=== PATIENT | female | born 1950 | race African-American/Black ===

== ENCOUNTER → 2017-04-14 | Outpatient (CLI) | payer MEDICARE, MEDICAID ==
[~2017-04-14] MED LIST: AMLO10TA80 PO; KDUR10 PO; LIDOCAINE HCL/PF 1% 2ML VIAL ONE
[2017-04-14 07:38] LABS: BG BASE EXCESS -4.3 mmol/L (-2.0-2.0); BG CARBOXYHEMOGLOBIN 0.3 % (0.5-1.5); BG DEOXYHEMOGLOBIN 3.4 % (0.0-5.0); BG HCO3 ACT 20.4 mmol/L (22.0-26.0); BG METHEMOGLOBIN 0.2 % (0.0-1.5); BG OXYGEN SATURATION 96.6 % (92.0-98.5); BG OXYHEMOGLOBIN 96.1 % (94.0-97.0); BG PCO2 36.1 mmHg (35.0-45.0); BG PH 7.369 (7.350-7.450); BG SAMPLE SITE RIGHT RADIAL; BG TOTAL HEMOGLOBIN 13.1 g/dL (12.0-18.0); BG VENT MODE ROOM AIR
== END | disposition home or self-care (01) ==
LOC: RAD 07:10
PROVIDERS: ATTEND Internal Medicine Pulmonary Disease
DX: R06.02 Shortness of breath (principal)
CPT/HCPCS: 36600; 71010; 82375; 82805; J3490

== ENCOUNTER 2019-08-04 17:08 | Inpatient (IN) | payer OTHER ==
[~2019-08-04] VITALS: Ht 165.1 cm; Wt 146.7 kg
[~2019-08-04 17:08] MED LIST changes: -LIDOCAINE HCL/PF 1% 2ML VIAL ONE
[2019-08-04 18:41] LABS: HEMATOCRIT. 37.2 % (36.0-48.0); HEMOGLOBIN. 12.3 g/dL (12.0-16.0); MEAN CORPUSCULAR HEMOGLOBIN 25.5 pg (28.0-32.0); MEAN CORPUSCULAR VOLUME 77.1 fL (81.0-99.0); MEAN PLATELET VOLUME 8.2 fl (7.4-10.4); PLATELET 440 x1000/uL (130-400); RED BLOOD CELL COUNT 4.82 mill/uL (4.2-5.4); RED CELL DISTRIBUTION WIDTH 20.5 % (11.6-14.6)
[2019-08-04 18:47] LABS: CHLORIDE 104 mEq/L (98-107)
[2019-08-04 19:55] LABS: PLATELET ESTIMATE SLIGHTLY INCREASED
[2019-08-04] MEDS ORDERED: ASPIRIN 325MG EC TABLET PO ONE (20:15)
[2019-08-04] MEDS ORDERED: ENOXAPARIN 100MG/ML SYR SUBCUT NR (20:15)
[2019-08-04] MEDS ORDERED: ONDANSETRON HCL 4MG/2ML INJ IV STA (22:38)
[2019-08-04] MEDS ORDERED: MORPHINE SULFATE 4 MG/ML CPJ (NOT FOR IM USE) IV STA (22:38)
[2019-08-05] VITALS (9 sets, daily range): BP systolic 125–166; BP diastolic 64–87
[2019-08-05] MEDS ORDERED: METHYLPREDNISOLONE SOD SUCC 125 MG/2 ML VIAL IV NR (00:15)
[2019-08-05] MEDS ORDERED: ALBUTEROL (0.083%) 2.5MG/3ML NEB HHN PRN (00:15)
[2019-08-05] MEDS ORDERED: OMEPRAZOLE 20MG CAPSULE EXTENDED RELEASE PO NR (00:30)
[2019-08-05] MEDS ORDERED: DOCUSATE SODIUM 100MG CAPSULE PO PRN (00:45)
[2019-08-05] MEDS ORDERED: ACETAMINOPHEN 325MG TABLET PO PRN (00:45)
[2019-08-05 04:57] LABS: BASOPHILS % 0.2 % (0.0-2.0); HEMATOCRIT. 35.1 % (36.0-48.0); HEMOGLOBIN. 11.7 g/dL (12.0-16.0); LYMPHOCYTES % 9.6 % (20.0-50.0); MEAN CORPUSCULAR HEMOGLOBIN 25.5 pg (28.0-32.0); MEAN CORPUSCULAR VOLUME 76.4 fL (81.0-99.0); MEAN PLATELET VOLUME 8.3 fl (7.4-10.4); MONOCYTES % 4.4 % (2.0-8.0); NEUTROPHILS % 84.8 % (40.0-76.0); PLATELET 372 x1000/uL (130-400)
[2019-08-05 05:09] LABS: PHOSPHORUS 3.3 mg/dL (2.5-4.9)
[2019-08-05 05:14] LABS: CREATINE KINASE MB FRACTION 2.6 ng/mL (0.5-3.6)
[2019-08-05] MEDS ORDERED: AZITHROMYCIN 500 MG TABLET PO NR (06:15)
[2019-08-05] MEDS: OXYCODONE HCL/ACETAMINOPHEN 5/325MG TABLET PO PRN ×3 (07:10→21:13)
[2019-08-05] MEDS ORDERED: SPIRONOLACTONE 25MG TABLET PO SCH (09:00)
[2019-08-05] MEDS ORDERED: ENOXAPARIN 40MG/0.4ML SYR SUBCUT SCH (10:00)
[2019-08-05 10:10] LABS: BG BASE EXCESS -3.4 mmol/L (-2.0-2.0); BG CARBOXYHEMOGLOBIN 0.1 % (0.5-1.5); BG DEOXYHEMOGLOBIN 15.3 % (0.0-5.0); BG FRACTION INSPIRED OXYGEN 32; BG HCO3 ACT 22.8 mmol/L (22.0-26.0); BG METHEMOGLOBIN 0.4 % (0.0-1.5); BG OXYGEN SATURATION 84.6 % (92.0-98.5); BG OXYHEMOGLOBIN 84.2 % (94.0-97.0); BG PCO2 45.6 mmHg (35.0-45.0); BG PH 7.317 (7.350-7.450); BG PO2 52.4 mmHg (75.0-100.0); BG SAMPLE SITE RIGHT RADIAL; BG TOTAL HEMOGLOBIN 12.7 g/dL (12.0-18.0); BG VENT MODE NASAL CANNULA
[2019-08-05] MEDS: SPIRONOLACTONE 25MG TABLET PO SCH (10:54)
[2019-08-05] MEDS: METHYLPREDNISOLONE SOD SUCC 125 MG/2 ML VIAL IV SCH ×2 (10:54→17:24)
[2019-08-05] MEDS: OMEPRAZOLE 20MG CAPSULE EXTENDED RELEASE PO SCH (10:55)
[2019-08-05] MEDS: AMLODIPINE 10MG TABLET PO SCH (10:55)
[2019-08-05] MEDS ORDERED: IPRATROPIUM/ALBUTEROL 0.5-3(2.5)MG/3ML NEB HHN SCH (12:00)
[2019-08-05] MEDS ORDERED: SODIUM CHLORIDE 0.9% 250 ML IV ONE (15:15)
[2019-08-05 15:22] LABS: BG BASE EXCESS -3.6 mmol/L (-2.0-2.0); BG CARBOXYHEMOGLOBIN 0.5 % (0.5-1.5); BG DEOXYHEMOGLOBIN 4.4 % (0.0-5.0); BG FRACTION INSPIRED OXYGEN 50; BG HCO3 ACT 22.9 mmol/L (22.0-26.0); BG METHEMOGLOBIN 0.4 % (0.0-1.5); BG OXYGEN SATURATION 95.6 % (92.0-98.5); BG OXYHEMOGLOBIN 94.7 % (94.0-97.0); BG PCO2 47.3 mmHg (35.0-45.0); BG PH 7.303 (7.350-7.450); BG PO2 82.3 mmHg (75.0-100.0); BG SAMPLE SITE RIGHT RADIAL; BG VENT MODE MASK - VENTI
[2019-08-05] MEDS ORDERED: DEXTROSE 50% WATER 50ML SYRINGE IV PRN (16:30)
[2019-08-05] MEDS: ENOXAPARIN 100MG/ML SYR SUBCUT NR ×2 (16:59→17:04)
[2019-08-05] MEDS: BLOOD SUGAR DIAGNOSTIC STRIP TEST SCH ×2 (17:19→21:14)
[2019-08-05] MEDS: INSULIN LISPRO 100 UNITS/ML SUBCUT SCH ×2 (17:25→21:12)
[2019-08-05] MEDS ORDERED: OXYC-515 MT (19:01)
[2019-08-05] MEDS ORDERED: ONDA4TAB11 PO (19:01)
[2019-08-05] MEDS ORDERED: PANT40TA4 PO (19:01)
[2019-08-05] MEDS ORDERED: SPIR50TA5 PO (19:01)
[2019-08-05] MEDS: ENOXAPARIN 150MG/ML SYR SUBCUT SCH (21:14)
[2019-08-05 22:12] LABS: CREATINE KINASE MB FRACTION 2.4 ng/mL (0.5-3.6)
[2019-08-06] VITALS (14 sets, daily range): BP systolic 106–154; BP diastolic 54–127
[2019-08-06 02:25] LABS: CREATINE KINASE MB FRACTION 2.1 ng/mL (0.5-3.6)
[2019-08-06] MEDS: METHYLPREDNISOLONE SOD SUCC 125 MG/2 ML VIAL IV SCH ×2 (02:40→09:09)
[2019-08-06] MEDS: OMEPRAZOLE 20MG CAPSULE EXTENDED RELEASE PO SCH (07:47)
[2019-08-06] MEDS: INSULIN LISPRO 100 UNITS/ML SUBCUT SCH ×3 (07:47→18:21)
[2019-08-06] MEDS: BLOOD SUGAR DIAGNOSTIC STRIP TEST SCH ×3 (07:47→17:39)
[2019-08-06 08:35] LABS: HEMATOCRIT. 36.1 % (36.0-48.0); HEMOGLOBIN. 11.6 g/dL (12.0-16.0); MEAN CORPUSCULAR VOLUME 77.5 fL (81.0-99.0); MEAN PLATELET VOLUME 9.1 fl (7.4-10.4); PLATELET 388 x1000/uL (130-400); RED BLOOD CELL COUNT 4.65 mill/uL (4.2-5.4); RED CELL DISTRIBUTION WIDTH 20.6 % (11.6-14.6)
[2019-08-06] MEDS ORDERED: AZITHROMYCIN 500 MG TABLET PO SCH (09:00)
[2019-08-06] MEDS: SPIRONOLACTONE 25MG TABLET PO SCH (09:07)
[2019-08-06] MEDS: OXYCODONE HCL/ACETAMINOPHEN 5/325MG TABLET PO PRN ×2 (09:08→18:29)
[2019-08-06] MEDS: AMLODIPINE 10MG TABLET PO SCH (09:09)
[2019-08-06] MEDS: ENOXAPARIN 150MG/ML SYR SUBCUT SCH (11:49)
[2019-08-06 12:14] LABS: NUCLEATED RED BLOOD CELLS 1 /100 WBC; PLATELET ESTIMATE NORMAL
[2019-08-06] MEDS ORDERED: METHYLPREDNISOLONE SOD SUCC 40 MG/ML VIAL IV SCH (14:00)
[2019-08-07] MEDS ORDERED: FAMOTIDINE 20MG TABLET PO SCH (09:00)
== END 2019-08-06 20:40 | disposition short-term general hospital (02) | DRG 280 ==
LOC: ER 17:21 → 5EST 20:17 → EDBEDREQTM 20:24 → EDBEDREQ 20:24 → EDBEDREQTM 08-05 05:05 → EDBEDREQSVC 08-05 05:05 → ENRESERV 08-05 07:31
PROVIDERS: ADMIT Internal Medicine Pulmonary Disease; ATTEND Internal Medicine Pulmonary Disease
DX: I21.4 Non-ST elevation (NSTEMI) myocardial infarction (principal); J96.21 Acute and chronic respiratory failure with hypoxia; I26.99 Other pulmonary embolism without acute cor pulmonale; J96.22 Acute and chronic respiratory failure with hypercapnia; J44.1 Chronic obstructive pulmonary disease with (acute) exacerbation; I13.0 Hypertensive heart and chronic kidney disease with heart failure and stage 1 through stage 4 chronic kidney disease, or unspecified chronic kidney disease; Z68.43 Body mass index [BMI] 50.0-59.9, adult; E11.22 Type 2 diabetes mellitus with diabetic chronic kidney disease; E66.01 Morbid (severe) obesity due to excess calories; E78.5 Hyperlipidemia, unspecified; G89.29 Other chronic pain; I27.20 Pulmonary hypertension, unspecified; I50.9 Heart failure, unspecified; E11.65 Type 2 diabetes mellitus with hyperglycemia; T38.0X5A Adverse effect of glucocorticoids and synthetic analogues, initial encounter; M54.5 Low back pain; K76.0 Fatty (change of) liver, not elsewhere classified; N18.3 Chronic kidney disease, stage 3 (moderate); Z79.01 Long term (current) use of anticoagulants; Z82.49 Family history of ischemic heart disease and other diseases of the circulatory system; Z83.3 Family history of diabetes mellitus; Z86.718 Personal history of other venous thrombosis and embolism; Z79.899 Other long term (current) drug therapy; Y92.89 Other specified places as the place of occurrence of the external cause
CPT/HCPCS: 36415; 36600; 71045; 78582; 80048; 82375; 82550; 82553; 82805; 82962; 83735; 83880; 84100; 84484; 85379; 93005; 93306; 93970; 94640; 96374; 99291; A9558; J1650; J1815; J2270; J2405; J2920; J2930; J7611

== ENCOUNTER 2024-05-09 10:08 | Emergency (ER) | payer OTHER, MEDICAID ==
[~2024-05-09] VITALS: Ht 160 cm; Wt 113.0 kg
[~2024-05-09 10:08] MED LIST changes: +ALBU6.7H3 INH; +AMLO10TA80 MT; +APIX2.5T MT; +APIX2.5T PO; +ASCO500C18 MT; +CHOL400D7 MT; +FERR324T17 PO; +FERR324T4 MT; +FURO80TA87 MT; +HYDR-4009 MT; +HYDR500C18 MT; +HYDR500C18 PO; -KDUR10 PO; +PANT40TA51 MT; +PANT40TA51 PO; +POTA-205 MT; +POTA10CA93 MT; +SPIR50TA5 MT; +TRAM100T25 MT; +TRAM50TA3 PO; +VANC125C11 MT
[2024-05-09 10:12] VITALS: O2SAT 95
[2024-05-09] MEDS: KETOROLAC 15MG/ML VIAL IV ONE (10:30)
[2024-05-09 11:24] LABS: BASOPHILS % 0.2 % (0.0-2.0); EOSINOPHILS % 2.5 % (0.0-5.0); HEMATOCRIT. 34.9 % (36.0-48.0); LYMPHOCYTES % 7.8 % (20.0-50.0); MEAN CORPUSCULAR HEMOGLOBIN 27.5 pg (28.0-32.0); MEAN CORPUSCULAR HGB CONC 31.6 g/dL (31.0-37.0); MEAN CORPUSCULAR VOLUME 87.1 fL (81.0-99.0); MEAN PLATELET VOLUME 8.2 fl (7.4-10.4); MONOCYTES % 9.7 % (2.0-8.0); NEUTROPHILS % 79.8 % (40.0-76.0); PLATELET 313 x1000/uL (130-400); RED BLOOD CELL COUNT 4.01 mill/uL (4.2-5.4); RED CELL DISTRIBUTION WIDTH 19.3 % (11.6-14.6); WHITE BLOOD COUNT 6.1 x1000/uL (4.5-11.0)
[2024-05-09 11:34] LABS: CHLORIDE 106 mEq/L (98-107); POTASSIUM 5.3 mEq/L (3.5-5.1); SODIUM 136 mEq/L (136-145)
[2024-05-09 11:35] LABS: CALCIUM 9.8 mg/dL (8.7-10.4); CARBON DIOXIDE 25 mEq/L (21-32)
[2024-05-09 11:37] LABS: INR 1.1; PROTHROMBIN TIME 12.1 sec (9.6-11.0)
[2024-05-09 11:40] LABS: CREATININE 1.6 mg/dL (0.6-1.0); GLUCOSE 106 mg/dL (70-105); TROPONIN I HIGH SENSITIVITY 7 ng/L (3.0-34); UREA NITROGEN BLOOD 26 mg/dL (9-23)
[2024-05-09 11:42] LABS: ALANINE AMINOTRANSFERASE 18 IU/L (10-49); ALBUMIN 3.8 g/dL (3.2-4.8); ASPARTATE AMINOTRANSFERASE 28 IU/L (<34); BILIRUBIN TOTAL 0.9 mg/dL (0.1-1.0); PROTEIN TOTAL 6.3 g/dL (6.0-8.3)
[2024-05-09 14:06] LABS: TROPONIN I HIGH SENSITIVITY 7 ng/L (3.0-34)
[2024-05-09] MEDS: FUROSEMIDE 40MG/4ML VIAL IVP ONE (14:36)
[2024-05-09 15:27] VITALS: BP 123/41; PULSE 75; RESP 16; TEMP 36.72516; O2SAT 96
[2024-05-09] MEDS ORDERED: ACETAMINOPHEN 325MG TABLET PO PRN (16:30)
[2024-05-09] MEDS ORDERED: APIXABAN 2.5 MG TABLET PO SCH (16:30)
[2024-05-09] MEDS ORDERED: ZOLPIDEM TARTRATE 5MG TABLET PO PRN (16:30)
[2024-05-09] MEDS ORDERED: TRAMADOL 50MG TABLET PO PRN (16:30)
[2024-05-09] MEDS ORDERED: SPIRONOLACTONE 50MG TABLET PO SCH (16:30)
[2024-05-09] MEDS ORDERED: CHOLECALCIFEROL (D3) 1000 UNIT TABLET PO SCH (16:30)
[2024-05-09] MEDS ORDERED: PANTOPRAZOLE 40MG DR TABLET PO SCH (16:30)
[2024-05-09] MEDS ORDERED: FUROSEMIDE 100MG/10ML VIAL IVP SCH (17:15)
[2024-05-09] MEDS ORDERED: POTASSIUM CHLORIDE 20MEQ TABLET SR PO SCH (21:00)
[2024-05-10] MEDS ORDERED: AMLODIPINE 10MG TABLET PO SCH (09:00)
[2024-05-10] MEDS ORDERED: HYDROXYUREA 500MG CAPSULE PO SCH (09:00)
== END 2024-05-09 15:46 | disposition short-term general hospital (02) ==
LOC: ER 10:19 → EDBEDREQ 14:08 → CANBEDREQ 15:36 → ER 15:46
DX: R60.0 Localized edema (principal); R29.6 Repeated falls; F19.90 Other psychoactive substance use, unspecified, uncomplicated; I11.0 Hypertensive heart disease with heart failure; I50.9 Heart failure, unspecified; Z79.899 Other long term (current) drug therapy
CPT/HCPCS: 99285; 96374; 71045; 96375; 80053; 83880; 85025; 85610; 84484; 36415; 73560; 93005; J1940 ×2; J1885